=== PATIENT | male | born 1970 | race Caucasian/White ===

== ENCOUNTER 2017-04-11 19:22 | Emergency (ER) ==
[2017-04-11 19:43] VITALS: BP 147/74; TEMP 98; BMI 20.1
[2017-04-11] MEDS ORDERED: ZOFRAN ODT PO STA (20:04)
[2017-04-11] MEDS ORDERED: DILAUDID 1 MG/ML SYRINGE IM STA (20:04)
--- NOTE | 2017-04-11 20:08 | ED.PDOC ---
General ED Provider: Dr. SHARON CAPUTO Chief Complaint: Back Pain Stated Complaint: Patient states that he thinks he sprained his left back while pulling on some furniture. Now has spasms. Has tried motrin 4 times a day but has not helped. had similar symtoms few years ago. Time Seen by Physician: 20:00 Information Source: Patient Exam Limitations: No limitations Nursing and Triage Documentation Reviewed and Agree: Yes Musculoskeletal Complaint Exam - Back Pain Complaint/Exam Mechanism of Injury: Reports: No known trauma Onset/Duration: 3 days Symptoms Are: Still present Timing: Constant Initial Severity: Moderate Current Severity: Severe Location: Reports: Discrete (left mid to lower back ) Character: Reports: Aching, Spasmodic Aggravating: Reports: Movements Alleviating: Reports: None Associated Signs and Symptoms: Denies: Swelling, Redness, Bruising, Fever, Weakness, Numbness, Tingling, Abdominal pain, Flank pain, Bladder incontinence, Bowel incontinence, Weight loss, Pain with weight bearing Related History: Reports: Previous back injury. Denies: Similar episode, Occupational injury TAD Risk Factors: Reports: None AAA Risk Factors: Reports: None Cauda Equina Risk Factors: Reports: None Focal Tenderness: Yes Paraspinal Muscle Tenderness: Yes Paraspinal Muscle Spasm: Yes Scoliosis: No Lordosis: No Kyphosis: No SLR Test: Right Negative, Left Negative Hip Motion Testing Pain: Right Negative, Left Negative Focal Weakness: Present: None Focal Sensory Loss: Present: None Gait: Present: Normal Back Picture: 1 - pain and spasms Differential Diagnoses: Strain, Sprain Review of Systems - Review Of Systems Constitutional: Reports: No symptoms Eyes: Reports: No symptoms Ears, Nose, Mouth, Throat: Reports: No symptoms Respiratory: Reports: No symptoms Cardiac: Reports: No symptoms GI: Reports: No symptoms : Reports: No symptoms Musculoskeletal: Reports: Back pain Skin: Reports: No symptoms Neurological: Reports: No symptoms Endocrine: Reports: No symptoms Hematologic/Lymphatic: Reports: No symptoms All Other Systems: Reviewed and Negative Past Medical History - Past Medical History Previously Healthy: Yes Endocrine: Reports: None Cardiovascular: Reports: None Respiratory: Reports: None Hematological: Reports: None Gastrointestinal: Reports: None Genitourinary: Reports: None Neuro/Psych: Reports: None Musculoskeletal: Reports: None Cancer: Reports: None - Surgical History General Surgical History: Reports: Other (vasectomy) - Family History Family History: Reports: None - Social History Smoking Status: Current every day smoker, Light tobacco smoker Hx Substance Use: No Alcohol Screening: None - Immunizations Tetanus Shot up to Date: No Physical Exam - Physical Exam Appearance: Ill-appearing Ill-appearing: Mild Pain Distress: Severe Neck: Supple Respiratory: Airway patent, Breath sounds clear, Breath sounds equal, Respirations nonlabored Cardiovascular: RRR, Pulses normal, No rub, No murmur GI/: Soft Musculoskeletal: Normal strength, No edema, Limited ROM (of the back ) Skin: Warm, Dry, Normal color Neurological: Sensation intact, Motor intact, Reflexes intact, Cranial nerves intact, Alert, Oriented Psychiatric: Affect appropriate, Mood appropriate Re-Evaluation - Re-Evaluation Time of Re-Evaluation: 20:20 Status: Improved Pain Level: much better Critical Care Note - Critical Care Note Total Time (mins): 0 Course - Course Orders, Labs, Meds: Orders Category Date Time Status Hydromorphone HCl [Dilaudid 1 mg/ml Syringe] MEDS 04/11/17 20:04 Discontinued 1 mg IM ONCE STA Ondansetron [Zofran Odt] MEDS 04/11/17 20:04 Discontinued 4 mg PO ONCE STA Medications Discontinued Medications Generic Name Dose Route Start Last Admin Trade Name Freq PRN Reason Stop Dose Admin Hydromorphone HCl 1 mg 04/11/17 20:04 04/11/17 20:23 Dilaudid 1 Mg/Ml Syringe IM 04/11/17 20:05 1 mg ONCE STA Administration Ondansetron HCl 4 mg 04/11/17 20:04 04/11/17 20:24 Zofran Odt PO 04/11/17 20:05 4 mg ONCE STA Administration Vital Signs: Temp Pulse Resp BP Pulse Ox 04/11/17 19:25 98 F 80 18 147/74 H 99 Departure - Departure Time of Disposition: 20:38 Disposition: HOME SELF-CARE Discharge Problem: Backache, Muscle spasm Instructions: Muscle Spasm (ED), Back Pain (ED) Condition: Good Pt referred to PMD for follow-up: Yes Additional Instructions: Take medications as prescribed Follow up with PCP in 3 days Rest Prescriptions: Tramadol HCl [Ultram] 50 mg PO Q6H PRN #14 tablet PRN Reason: Severe Pain Allergies/Adverse Reactions: Allergies hydrocodone Adverse Reaction (Verified 04/11/17 19:34) Vomiting Penicillins Adverse Reaction (Verified 04/11/17 19:34) Rash prednisone Adverse Reaction (Verified 04/11/17 19:34) AGITATION Home Medications: Ambulatory Orders Tramadol HCl [Ultram] 50 mg PO Q6H PRN #14 tablet 04/11/17 Disposition Discussed With: Patient, Family
== END 2017-04-11 20:56 | disposition home or self-care (01) ==
LOC: ED 19:22
DX: M54.9 Dorsalgia, unspecified (principal); M62.830 Muscle spasm of back; F17.210 Nicotine dependence, cigarettes, uncomplicated; X50.1XXA Overexertion from prolonged static or awkward postures, initial encounter
CPT/HCPCS: 96372; 99282